=== PATIENT | female | born 1970 | race Asian ===

== ENCOUNTER 2022-03-02 14:48 | Inpatient (IN) | payer MEDICAID ==
[~2022-03-02] VITALS: Ht 152.4 cm; Wt 72.7 kg
[2022-03-02 16:52] LABS: BASOPHILS % (AUTO) 0.4 % (0-1); EOSINOPHILS # (AUTO) 0.2 X10'3 (0-0.9); EOSINOPHILS % (AUTO) 3.1 % (0-6); LYMPHOCYTES # (AUTO) 1.1 X10'3 (1.1-4.8); LYMPHOCYTES % (AUTO) 17.6 % (21-51); MEAN CORPUSCULAR HEMOGLOBIN 28.8 PG (27.0-31.0); MEAN CORPUSCULAR HGB CONC 33.3 g/dL (33.0-36.5); MEAN CORPUSCULAR VOLUME 86.5 FL (78-98); MEAN PLATELET VOLUME 7.8 FL (7.4-10.4); MONOCYTES # (AUTO) 0.5 X10'3 (0-0.9); MONOCYTES % (AUTO) 8.2 % (2-12); NEUTROPHILS # (AUTO) 4.5 X10'3 (1.8-7.7); NEUTROPHILS % (AUTO) 70.7 % (42-75); PLATELET COUNT 184 X10'3 (140-440); RED BLOOD COUNT 2.06 X10'6 (4.20-5.60); WHITE BLOOD COUNT 6.3 X10'3 (4.5-11.0)
[2022-03-02 16:53] LABS: CLARITY,URINE CLEAR (Clear); GLUCOSE, URINE 250 mg/dl (Neg); KETONES,URINE NEGATIVE (Neg); LEUKOCYTE ESTERASE ,URINE NEGATIVE (Neg); NITRITES, URINE NEGATIVE (Neg); OCCULT BLOOD,URINE SMALL (Neg); PROTEIN,URINE 30 mg/dl (Neg); UROBILINOGEN,URINE 0.2 E.U/dL (0.2-1.0)
[2022-03-02 16:55] LABS: HEMOGLOBIN 5.9 g/dl (12.0-16.0)
[2022-03-02 16:56] LABS: COLOR,URINE STRAW (Yellow); UA COLLECTION TYPE CLN CATCH MIDSTREAM
[2022-03-02 16:56] LABS: HEMATOCRIT 17.9 % (35.0-45.0)
[2022-03-02 16:59] LABS: BACTERIA,URINE NONE SEEN /HPF (Neg); MUCUS STRANDS NONE SEEN /LPF (Neg); RBC,URINE 0-2 /HPF (0-2); SQUAMOUS EPITHELIAL CELL,UR FEW /LPF (FEW); WBC,URINE 0-4 /HPF (0-4)
[2022-03-02 17:00] LABS: URINE HCG NEGATIVE (NEG)
[2022-03-02 17:11] LABS: ALANINE AMINOTRANSFERASE 14 U/L (12-78); ALBUMIN 3.5 G/DL (3.4-5.0); ALBUMIN/GLOBULIN RATIO 0.9 (1.1-1.5); ALKALINE PHOSPHATASE 131 IU/L (46-116); ANION GAP 17 (8-16); ASPARTATE AMINO TRANSFERASE 11 U/L (10-37); BILIRUBIN,TOTAL 0.2 MG/DL (0.1-1.0); BLOOD UREA NITROGEN 131 MG/DL (7-18); BUN/CREATININE RATIO 13.3 (6.6-38.0); CHLORIDE 107 MMOL/L (99-107); CREATININE 9.84 MG/DL (0.40-0.90); GLUCOSE 114 MG/DL (70-104); LIPASE 542 U/L (73-393); POTASSIUM 3.8 MMOL/L (3.5-5.1); SODIUM 141 MMOL/L (135-145); TOTAL CARBON DIOXIDE 16.6 MMOL/L (24-32); TOTAL PROTEIN 7.3 G/DL (6.4-8.2); eGFR 4 ML/MIN
[2022-03-02 17:25] LABS: CALCIUM 5.7 MG/DL (8.5-10.1)
[2022-03-02 18:04] LABS: PHOSPHORUS 5.7 MG/DL (2.3-4.5)
[2022-03-02 23:15] VITALS: BP 170/94
[2022-03-02 23:33] VITALS: BP 161/96
[2022-03-02] MEDS ORDERED: calcium chloride 100 MG/1 ML inj IV ONE (23:50)
[2022-03-03 00:23] VITALS: BP 155/73
[2022-03-03] MEDS ORDERED: NO HOME MEDS (00:25)
[2022-03-03 01:04] VITALS: BP 176/87
[2022-03-03] MEDS ORDERED: acetaminophen 325mg tablet PO PRN (01:20)
[2022-03-03] MEDS ORDERED: morphine 2 MG/ML inj. syringe IV PRN (01:20)
[2022-03-03] MEDS ORDERED: bisacodyl 10mg suppository rectal RC PRN (01:20)
[2022-03-03] MEDS ORDERED: magnesium hydroxide 30ml (MOM) UD suspension PO PRN (01:20)
[2022-03-03] MEDS ORDERED: mag hydrox/Alum hydrox/simeth 30ml oral suspension PO PRN (01:20)
[2022-03-03] MEDS ORDERED: HYDROcodone/acetaminophen 5mg/325mg tablet PO PRN (01:20)
[2022-03-03] MEDS ORDERED: diphenhydrAMINE 50 mg/ml inj IV PRN (01:20)
[2022-03-03] MEDS ORDERED: diphenhydrAMINE 25mg capsule PO PRN (01:20)
[2022-03-03] MEDS ORDERED: ondansetron 4mg rapidly disintigrating tab PO PRN (01:20)
[2022-03-03] MEDS ORDERED: acetaminophen 650mg rectal suppository RC PRN (01:20)
[2022-03-03] MEDS ORDERED: ondansetron/PF 4mg/2ml inj IV PRN (01:20)
[2022-03-03 02:03] LABS: HEMOGLOBIN A1C 5.6 % (4.5-6.2)
[2022-03-03] MEDS: normal saline 1000ml 1,000 ML IV SCH ×2 (02:06→11:19)
[2022-03-03 02:15] LABS: APTT 30 SECONDS (22-32)
[2022-03-03 02:17] LABS: URINE AMPHETAMINE SCREEN NEGATIVE (Neg); URINE BARBITUATE SCREEN NEGATIVE (Neg); URINE BENZODIAZEPINES SCREEN NEGATIVE (Neg); URINE CANNABINOID SCREEN NEGATIVE (Neg); URINE COCAINE SCREEN NEGATIVE (Neg); URINE METHADONE SCREEN NEGATIVE (Neg); URINE OPIATE SCREEN NEGATIVE (Neg); URINE PHENCYCLIDINE SCREEN NEGATIVE (Neg)
[2022-03-03 02:26] LABS: CREATINE KINASE 299 U/L (26-192)
[2022-03-03 03:33] LABS: HEMATOCRIT 22.7 % (35.0-45.0); HEMOGLOBIN 7.4 g/dl (12.0-16.0); MEAN CORPUSCULAR HEMOGLOBIN 29.3 PG (27.0-31.0); MEAN CORPUSCULAR HGB CONC 32.7 g/dL (33.0-36.5); MEAN CORPUSCULAR VOLUME 89.6 FL (78-98); MEAN PLATELET VOLUME 8.2 FL (7.4-10.4); PLATELET COUNT 192 X10'3 (140-440); RED BLOOD COUNT 2.53 X10'6 (4.20-5.60); RED CELL DISTRIBUTION WIDTH 13.8 % (11.5-14.5); WHITE BLOOD COUNT 7.5 X10'3 (4.5-11.0)
--- NOTE | 2022-03-03 06:25 | NUR ---
BEDSIDE REPORT RECEIVED FROM [facility] SHIFT NURSE AT THIS TIME. PATIENT ASLEEP, NO SIGNS OF DISTRESS NOTED, ALL SAFETY MEASURES IN PLACE, WILL CONTINUE TO MONITOR.
[2022-03-03 07:12] LABS: OCCULT BLOOD STOOL NEGATIVE (Neg)
[2022-03-03 07:29] LABS: ALANINE AMINOTRANSFERASE 14 U/L (12-78); ALBUMIN 3.7 G/DL (3.4-5.0); ALBUMIN/GLOBULIN RATIO 1.1 (1.1-1.5); ALKALINE PHOSPHATASE 134 IU/L (46-116); ANION GAP 21 (8-16); ASPARTATE AMINO TRANSFERASE 16 U/L (10-37); BILIRUBIN,TOTAL 0.3 MG/DL (0.1-1.0); BLOOD UREA NITROGEN 122 MG/DL (7-18); BUN/CREATININE RATIO 12.8 (6.6-38.0); CALCIUM 7.1 MG/DL (8.5-10.1); CHLORIDE 109 MMOL/L (99-107); CREATININE 9.56 MG/DL (0.40-0.90); GLUCOSE 90 MG/DL (70-104); POTASSIUM 4.1 MMOL/L (3.5-5.1); SODIUM 143 MMOL/L (135-145); TOTAL PROTEIN 7.2 G/DL (6.4-8.2); eGFR 4 ML/MIN
[2022-03-03] MEDS: calcium carbonate/vitamin D3 tablet PO SCH ×3 (07:38→17:51)
[2022-03-03] MEDS: pantoprazole 40mg Tablet.DR PO SCH (07:38)
[2022-03-03] MEDS: docusate sod 100mg capsule PO SCH ×2 (07:39→20:34)
[2022-03-03] MEDS: amLODIPine 5mg tablet PO SCH (08:00)
[2022-03-03] MEDS: sodium bicarbonate (8.4%) inj. 150 MEQ in dextrose 5%-water 1,000 ML IV SCH ×2 (09:01→20:36)
[2022-03-03 12:15] VITALS: BP 140/82
--- NOTE | 2022-03-03 18:20 | NUR ---
Problems reprioritized. Patient report given, questions answered & plan of care reviewed with NNEKA ARENAS.
[2022-03-03 18:56] VITALS: BP 140/77
--- NOTE | 2022-03-03 21:24 | NUR ---
Charting by Maria Victoria SORENSON reviewed by July Espinosa RN
[2022-03-04] VITALS: BP 131/82
[2022-03-04 06:00] VITALS: BP 171/84
[2022-03-04 06:06] LABS: BASOPHILS % (AUTO) 0.6 % (0-1); EOSINOPHILS # (AUTO) 0.2 X10'3 (0-0.9); EOSINOPHILS % (AUTO) 2.6 % (0-6); LYMPHOCYTES # (AUTO) 1.4 X10'3 (1.1-4.8); LYMPHOCYTES % (AUTO) 21.4 % (21-51); MEAN CORPUSCULAR HEMOGLOBIN 29.7 PG (27.0-31.0); MEAN CORPUSCULAR HGB CONC 33.7 g/dL (33.0-36.5); MEAN CORPUSCULAR VOLUME 88.2 FL (78-98); MEAN PLATELET VOLUME 8.7 FL (7.4-10.4); MONOCYTES # (AUTO) 0.5 X10'3 (0-0.9); NEUTROPHILS # (AUTO) 4.3 X10'3 (1.8-7.7); NEUTROPHILS % (AUTO) 67.4 % (42-75); PLATELET COUNT 177 X10'3 (140-440); RED CELL DISTRIBUTION WIDTH 13.4 % (11.5-14.5); WHITE BLOOD COUNT 6.3 X10'3 (4.5-11.0)
[2022-03-04 06:11] LABS: ALANINE AMINOTRANSFERASE 12 U/L (12-78); ALBUMIN/GLOBULIN RATIO 0.9 (1.1-1.5); ALKALINE PHOSPHATASE 130 IU/L (46-116); ANION GAP 13 (8-16); ASPARTATE AMINO TRANSFERASE 13 U/L (10-37); BILIRUBIN,TOTAL 0.2 MG/DL (0.1-1.0); BLOOD UREA NITROGEN 108 MG/DL (7-18); BUN/CREATININE RATIO 12.3 (6.6-38.0); CHLORIDE 105 MMOL/L (99-107); CHOL/HDL RATIO 3.3 (0.00-4.99); CHOLESTEROL 126 MG/DL (0-200); GLUCOSE 110 MG/DL (70-104); HDL CHOLESTEROL 38 MG/DL (35-60); LACTATE DEHYDROGENASE 235 U/L (81-234); LDL CHOLESTEROL 71 MG/DL (50-100); POTASSIUM 3.1 MMOL/L (3.5-5.1); SODIUM 141 MMOL/L (135-145); TOTAL CARBON DIOXIDE 23.4 MMOL/L (24-32); TOTAL PROTEIN 6.3 G/DL (6.4-8.2); TRIGLYCERIDES 87 MG/DL (20-135); eGFR 5 ML/MIN
[2022-03-04 06:16] LABS: HEMATOCRIT 20.3 % (35.0-45.0); HEMOGLOBIN 6.8 g/dl (12.0-16.0)
[2022-03-04] MEDS ORDERED: CALCIUM GLUC 1gm/50ml NACL,iso 100 ML IV ONE (06:30)
--- NOTE | 2022-03-04 06:30 | NUR ---
t/c to dr harrison to report critical values of h&h 6.8/20.3 and calcium of 6.0. received orders to infuse 1gm of calcium gluconate and to pass on h&h level to day time hospitalist.
--- NOTE | 2022-03-04 06:37 | NUR ---
Patient in room [facility]. I have received report from Roxi EARLY and had the opportunity to ask questions and assume patient care.
[2022-03-04 06:42] LABS: RHEUM FACTOR QUAL REFLEX TITER NEGATIVE (Neg)
--- NOTE | 2022-03-04 07:22 | NUR ---
PAGER ID: [phone] MESSAGE: [id number] Yasir Mathews: Critical values Calcium 6.0. H&H 6.8/20.3. received orders for 1gm calcium gluconate. Marissa hopkins passed the H&H orders to day shift. thank you! israel [phone]
--- NOTE | 2022-03-04 08:20 | NUR ---
Pt. [id number] talked with Angio, done with renal vascular ultrasound and stated that her NPO diet order can be advanced per order from MD.
--- NOTE | 2022-03-04 08:22 | NUR ---
Pt. got call from network/telecom engineer stating that pt. leads were off, went into pt. room and got leads back on pt. tele working, sinus rhythm. HR 74.
[2022-03-04 08:45] LABS: HIV ANTIBODY 1&2 RAPID NON-REACTIVE (Neg)
[2022-03-04] MEDS: calcium carbonate/vitamin D3 tablet PO SCH ×3 (09:02→18:02)
[2022-03-04] MEDS: docusate sod 100mg capsule PO SCH ×2 (09:03→19:19)
[2022-03-04] MEDS: amLODIPine 5mg tablet PO SCH (09:04)
[2022-03-04] MEDS: sodium bicarbonate (8.4%) inj. 150 MEQ in dextrose 5%-water 1,000 ML IV SCH ×2 (09:05→19:23)
[2022-03-04] MEDS: pantoprazole 40mg Tablet.DR PO SCH (09:14)
[2022-03-04 09:21] LABS: TOTAL PROTEIN,URINE RANDOM 39.5 MG/DL
[2022-03-04] MEDS ORDERED: EPOETIN ALFA-EPBX 20,000 UNIT/ML 1 ML MDV SQ ONE (10:40)
[2022-03-04 10:44] LABS: RED BLOOD COUNT 2.35 X10'6 (4.20-5.60); RETICULOCYTE % (AUTO) 1.9 % (0.5-1.5)
[2022-03-04 11:12] LABS: % IRON SATURATION 17 % (11-46); IRON 32 UG/DL (49-151); TOTAL IRON BINDING CAPACITY 191 UG/DL (259-388)
[2022-03-04] MEDS: potassium Cl 20 mEq SR tablet PO SCH ×2 (11:44→19:19)
[2022-03-04 12:00] VITALS: BP 128/83
--- NOTE | 2022-03-04 13:30 | NUR ---
PICKED UP BY [facility].
[2022-03-04] MEDS ORDERED: iron dextran complex inj. 25 MG in normal saline 50ml IV soln 100 ML IV ONE (14:00)
[2022-03-04] MEDS ORDERED: iron dextran complex inj. 25 MG in normal saline 50ml IV soln 49.5 ML IV ONE (14:00)
--- NOTE | 2022-03-04 14:43 | NUR ---
back from [facility].
--- NOTE | 2022-03-04 17:31 | NUR ---
I have reviewed and agree with all interventions, assessments performed and documented by NNEKA Garcia. For this medication-pass time frame, all medication were reviewed, dispensed, administered and documented per hospital policy by NNEKA Garcia.
--- NOTE | 2022-03-04 18:18 | NUR ---
Problems reprioritized. Patient report given, questions answered & plan of care reviewed with NNEKA Hernández.
[2022-03-04] MEDS ORDERED: NORMAL SALINE IV ONE (19:00)
[2022-03-04] MEDS ORDERED: IRON DEXTRAN COMPLEX IV ONE (19:00)
--- NOTE | 2022-03-04 19:16 | NUR ---
Message sent to pharmacy: 190 dose of Iron 100mg is ordered, however not here.... thanks Betty. Addendum: 03/04/22 at 1917 by Betty Malcolm RN Amended: Links added.
[2022-03-04 20:00] VITALS: BP 108/70
[2022-03-05] VITALS: BP 129/81
--- NOTE | 2022-03-05 06:37 | NUR ---
Problems reprioritized. Patient report given, questions answered & plan of care reviewed with Irma EARLY. Addendum: 03/05/22 at 0638 by Betty Malcolm RN Amended: Links added.
--- NOTE | 2022-03-05 06:38 | NUR ---
Problems reprioritized. Patient report given, questions answered & plan of care reviewed with Irma EARLY. Addendum: 03/05/22 at 0639 by Betty Malcolm RN Amended: Links added.
--- NOTE | 2022-03-05 06:55 | NUR ---
Patient in room [facility]. I have received report from mike hawkins and had the opportunity to ask questions and assume patient care.
[2022-03-05 07:42] VITALS: BP 129/68
[2022-03-05] MEDS: docusate sod 100mg capsule PO SCH ×2 (08:10→19:30)
[2022-03-05] MEDS: potassium Cl 20 mEq SR tablet PO SCH ×2 (08:10→19:25)
[2022-03-05] MEDS: pantoprazole 40mg Tablet.DR PO SCH (08:10)
[2022-03-05] MEDS: amLODIPine 5mg tablet PO SCH (08:10)
[2022-03-05] MEDS: calcium carbonate/vitamin D3 tablet PO SCH ×3 (08:10→19:30)
[2022-03-05] MEDS: calcitriol 0.25mcg capsule PO SCH (08:10)
[2022-03-05] MEDS: sodium bicarbonate (8.4%) inj. 150 MEQ in dextrose 5%-water 1,000 ML IV SCH (08:11)
[2022-03-05 08:16] LABS: BASOPHILS % (AUTO) 0.5 % (0-1); EOSINOPHILS # (AUTO) 0.2 X10'3 (0-0.9); EOSINOPHILS % (AUTO) 2.8 % (0-6); HEMOGLOBIN 7.1 g/dl (12.0-16.0); LYMPHOCYTES # (AUTO) 1.3 X10'3 (1.1-4.8); LYMPHOCYTES % (AUTO) 21.8 % (21-51); MEAN CORPUSCULAR HEMOGLOBIN 29.3 PG (27.0-31.0); MEAN CORPUSCULAR HGB CONC 33.4 g/dL (33.0-36.5); MEAN CORPUSCULAR VOLUME 87.8 FL (78-98); MEAN PLATELET VOLUME 8.3 FL (7.4-10.4); MONOCYTES # (AUTO) 0.4 X10'3 (0-0.9); MONOCYTES % (AUTO) 7.8 % (2-12); NEUTROPHILS # (AUTO) 3.9 X10'3 (1.8-7.7); NEUTROPHILS % (AUTO) 67.1 % (42-75); PLATELET COUNT 178 X10'3 (140-440); RED BLOOD COUNT 2.41 X10'6 (4.20-5.60); RED CELL DISTRIBUTION WIDTH 13.2 % (11.5-14.5); WHITE BLOOD COUNT 5.7 X10'3 (4.5-11.0)
[2022-03-05 08:23] LABS: HEMATOCRIT 21.2 % (35.0-45.0)
--- NOTE | 2022-03-05 08:29 | NUR ---
PAGED DR FUNK RE: PAGER ID: [phone] MESSAGE: MARCELL CARD. HGB 7.1 HCT 21.2 ROMARIO SURG [id number]
[2022-03-05 08:37] LABS: ALANINE AMINOTRANSFERASE 10 U/L (12-78); ALBUMIN 2.9 G/DL (3.4-5.0); ALBUMIN/GLOBULIN RATIO 0.9 (1.1-1.5); ALKALINE PHOSPHATASE 105 IU/L (46-116); ANION GAP 15 (8-16); ASPARTATE AMINO TRANSFERASE 12 U/L (10-37); BILIRUBIN,TOTAL 0.2 MG/DL (0.1-1.0); BLOOD UREA NITROGEN 94 MG/DL (7-18); BUN/CREATININE RATIO 10.8 (6.6-38.0); CHLORIDE 118 MMOL/L (99-107); CREATININE 8.73 MG/DL (0.40-0.90); GLUCOSE 103 MG/DL (70-104); POTASSIUM 3.9 MMOL/L (3.5-5.1); TOTAL CARBON DIOXIDE 31.5 MMOL/L (24-32); eGFR 5 ML/MIN
[2022-03-05 08:51] LABS: SODIUM 164 MMOL/L (135-145)
[2022-03-05 09:08] VITALS: BP 128/78
[2022-03-05 11:13] LABS: ANION GAP 8 (8-16); BLOOD UREA NITROGEN 96 MG/DL (7-18); CHLORIDE 103 MMOL/L (99-107); CREATININE 8.69 MG/DL (0.40-0.90); GLUCOSE 94 MG/DL (70-104); POTASSIUM 3.5 MMOL/L (3.5-5.1); SODIUM 142 MMOL/L (135-145); TOTAL CARBON DIOXIDE 30.7 MMOL/L (24-32); eGFR 5 ML/MIN
[2022-03-05 12:01] VITALS: BP 123/85
[2022-03-05 12:26] LABS: A/G RATIO 1.4 (0.7-1.7); ALBUMIN 3.3 g/dL (2.9-4.4); BETA GLOBULIN 0.7 g/dL (0.7-1.3); GAMMA GLOBULIN 0.9 g/dL (0.4-1.8); GLOBULIN, TOTAL 2.4 g/dL (2.2-3.9); HBSAG SCREEN Negative (Negative); HEPATITIS C ANTIBODY <0.1 s/co ratio (0.0-0.9); M-SPIKE Not Observed g/dL (Not Observed); PROTEIN, TOTAL, SERUM 5.7 g/dL (6.0-8.5)
[2022-03-05] MEDS ORDERED: mannitol 12.5gm/50mL VIAL IV ONE (13:10)
[2022-03-05] MEDS ORDERED: normal saline 1000ml 100 ML IV PRN (13:10)
[2022-03-05] MEDS ORDERED: EPOETIN ALFA-EPBX 20,000 UNIT/ML 1 ML MDV IV ONE (13:10)
[2022-03-05] MEDS ORDERED: heparin 1,000 units/ml 10ml inj HE ONE ×2 (13:15→13:55)
[2022-03-05] MEDS ORDERED: heparin 1,000unit/ml 10ml vial 10 ML ONE (13:41)
[2022-03-05] MEDS ORDERED: fentaNYL/PF 50MCG/1 ML 2ML syringe ONE (13:41)
[2022-03-05] MEDS ORDERED: LIDOcaine 1% 30ml preserv. free vial ONE (13:42)
--- NOTE | 2022-03-05 18:46 | NUR ---
Problems reprioritized. Patient report given, questions answered & plan of care reviewed with LIVIA EARLY.
[2022-03-05 19:00] VITALS: BP 132/86
[2022-03-05] MEDS: acetaminophen 325mg tablet PO PRN (22:14)
[2022-03-06] VITALS: BP 151/83
[2022-03-06 07:22] VITALS: BP_SYST 129; BP_SYST 135; BP_DIAS 82
[2022-03-06 07:26] LABS: BASOPHILS % (AUTO) 0.8 % (0-1); EOSINOPHILS # (AUTO) 0.1 X10'3 (0-0.9); EOSINOPHILS % (AUTO) 2.9 % (0-6); HEMATOCRIT 24.4 % (35.0-45.0); LYMPHOCYTES # (AUTO) 1.1 X10'3 (1.1-4.8); LYMPHOCYTES % (AUTO) 21.8 % (21-51); MEAN CORPUSCULAR HEMOGLOBIN 29.3 PG (27.0-31.0); MEAN CORPUSCULAR HGB CONC 33.1 g/dL (33.0-36.5); MEAN CORPUSCULAR VOLUME 88.5 FL (78-98); MEAN PLATELET VOLUME 8.3 FL (7.4-10.4); MONOCYTES # (AUTO) 0.5 X10'3 (0-0.9); MONOCYTES % (AUTO) 9.5 % (2-12); NEUTROPHILS # (AUTO) 3.3 X10'3 (1.8-7.7); PLATELET COUNT 194 X10'3 (140-440); RED BLOOD COUNT 2.75 X10'6 (4.20-5.60); RED CELL DISTRIBUTION WIDTH 13.4 % (11.5-14.5); WHITE BLOOD COUNT 5.1 X10'3 (4.5-11.0)
[2022-03-06 07:46] LABS: ALANINE AMINOTRANSFERASE 11 U/L (12-78); ALBUMIN 3.2 G/DL (3.4-5.0); ALBUMIN/GLOBULIN RATIO 0.9 (1.1-1.5); ALKALINE PHOSPHATASE 125 IU/L (46-116); ANION GAP 8 (8-16); ASPARTATE AMINO TRANSFERASE 16 U/L (10-37); BILIRUBIN,TOTAL 0.4 MG/DL (0.1-1.0); BLOOD UREA NITROGEN 39 MG/DL (7-18); BUN/CREATININE RATIO 7.1 (6.6-38.0); CALCIUM 7.7 MG/DL (8.5-10.1); CHLORIDE 103 MMOL/L (99-107); GLUCOSE 105 MG/DL (70-104); POTASSIUM 4.2 MMOL/L (3.5-5.1); SODIUM 140 MMOL/L (135-145); TOTAL CARBON DIOXIDE 29.5 MMOL/L (24-32); TOTAL PROTEIN 6.8 G/DL (6.4-8.2); eGFR 8 ML/MIN
[2022-03-06] MEDS: potassium Cl 20 mEq SR tablet PO SCH ×2 (08:00→21:47)
[2022-03-06] MEDS: iron sucrose complex injection 200 MG in normal saline 100ml IV soln 100 ML IV SCH (08:38)
[2022-03-06] MEDS: docusate sod 100mg capsule PO SCH ×2 (08:39→21:47)
[2022-03-06] MEDS: calcitriol 0.25mcg capsule PO SCH (08:40)
[2022-03-06] MEDS: amLODIPine 5mg tablet PO SCH (08:41)
[2022-03-06] MEDS: calcium carbonate/vitamin D3 tablet PO SCH ×3 (08:41→17:41)
[2022-03-06] MEDS: pantoprazole 40mg Tablet.DR PO SCH (08:41)
[2022-03-06] MEDS ORDERED: EPOETIN ALFA-EPBX 20,000 UNIT/ML 1 ML MDV IV ONE (09:30)
[2022-03-06] MEDS ORDERED: mannitol 12.5gm/50mL VIAL IV ONE (09:30)
[2022-03-06] MEDS ORDERED: heparin 1,000 units/ml 10ml inj HE ONE ×2 (09:35)
[2022-03-06 11:00] VITALS: BP_SYST 110; BP_SYST 114; BP_DIAS 65; BP_DIAS 81
[2022-03-06 11:48] LABS: ALANINE AMINOTRANSFERASE 8 U/L (12-78); ALBUMIN 3.2 G/DL (3.4-5.0); ALBUMIN/GLOBULIN RATIO 0.9 (1.1-1.5); ALKALINE PHOSPHATASE 123 IU/L (46-116); ANION GAP 12 (8-16); ASPARTATE AMINO TRANSFERASE 12 U/L (10-37); BILIRUBIN,TOTAL 0.3 MG/DL (0.1-1.0); BLOOD UREA NITROGEN 42 MG/DL (7-18); BUN/CREATININE RATIO 7.2 (6.6-38.0); CALCIUM 7.6 MG/DL (8.5-10.1); CHLORIDE 102 MMOL/L (99-107); CREATININE 5.87 MG/DL (0.40-0.90); GLUCOSE 135 MG/DL (70-104); POTASSIUM 3.9 MMOL/L (3.5-5.1); SODIUM 142 MMOL/L (135-145); TOTAL PROTEIN 6.9 G/DL (6.4-8.2); eGFR 8 ML/MIN
[2022-03-06 13:56] LABS: ALANINE AMINOTRANSFERASE 13 U/L (12-78); ALBUMIN 3.6 G/DL (3.4-5.0); ALBUMIN/GLOBULIN RATIO 0.9 (1.1-1.5); ALKALINE PHOSPHATASE 137 IU/L (46-116); ANION GAP 11 (8-16); ASPARTATE AMINO TRANSFERASE 14 U/L (10-37); BILIRUBIN,TOTAL 0.4 MG/DL (0.1-1.0); BLOOD UREA NITROGEN 13 MG/DL (7-18); CALCIUM 9.6 MG/DL (8.5-10.1); CHLORIDE 101 MMOL/L (99-107); CREATININE 1.87 MG/DL (0.40-0.90); GLUCOSE 108 MG/DL (70-104); POTASSIUM 3.1 MMOL/L (3.5-5.1); SODIUM 142 MMOL/L (135-145); TOTAL CARBON DIOXIDE 30.1 MMOL/L (24-32); TOTAL PROTEIN 7.7 G/DL (6.4-8.2); eGFR 29 ML/MIN
--- NOTE | 2022-03-06 16:49 | NUR ---
Student documentation: I have reviewed and agree with all interventions, assessments performed and documented by Jose Roberto Contreras student nurse, Alok Valladares RN instructor.
--- NOTE | 2022-03-06 18:13 | NUR ---
Problems reprioritized. Patient report given, questions answered & plan of care reviewed with LIVIA EARLY.
[2022-03-06 19:00] VITALS: BP 115/75
--- NOTE | 2022-03-06 19:00 | NUR ---
Patient in room [facility]. I have received report from LIVIA EARLY and had the opportunity to ask questions and assume patient care.
[2022-03-06 23:00] VITALS: BP 125/82
[2022-03-07] MEDS: acetaminophen 325mg tablet PO PRN (01:43)
[2022-03-07 03:00] VITALS: BP 125/84
--- NOTE | 2022-03-07 06:30 | NUR ---
Problems reprioritized. Patient report given, questions answered & plan of care reviewed with ANGEL EARLY.
[2022-03-07 07:00] VITALS: BP 125/80
[2022-03-07 07:25] LABS: BASOPHILS % (AUTO) 0.6 % (0-1); EOSINOPHILS # (AUTO) 0.2 X10'3 (0-0.9); EOSINOPHILS % (AUTO) 2.8 % (0-6); HEMATOCRIT 24.6 % (35.0-45.0); HEMOGLOBIN 8.2 g/dl (12.0-16.0); LYMPHOCYTES # (AUTO) 1.6 X10'3 (1.1-4.8); LYMPHOCYTES % (AUTO) 23.2 % (21-51); MEAN CORPUSCULAR HEMOGLOBIN 29.8 PG (27.0-31.0); MEAN CORPUSCULAR HGB CONC 33.4 g/dL (33.0-36.5); MEAN CORPUSCULAR VOLUME 89.3 FL (78-98); MEAN PLATELET VOLUME 8.4 FL (7.4-10.4); MONOCYTES # (AUTO) 0.6 X10'3 (0-0.9); MONOCYTES % (AUTO) 8.3 % (2-12); NEUTROPHILS # (AUTO) 4.6 X10'3 (1.8-7.7); NEUTROPHILS % (AUTO) 65.1 % (42-75); PLATELET COUNT 189 X10'3 (140-440); RED BLOOD COUNT 2.76 X10'6 (4.20-5.60); RED CELL DISTRIBUTION WIDTH 13.4 % (11.5-14.5)
[2022-03-07] MEDS: iron sucrose complex injection 200 MG in normal saline 100ml IV soln 100 ML IV SCH (07:27)
[2022-03-07] MEDS: docusate sod 100mg capsule PO SCH ×2 (07:28→19:48)
[2022-03-07] MEDS: calcitriol 0.25mcg capsule PO SCH (07:28)
[2022-03-07] MEDS: calcium carbonate/vitamin D3 tablet PO SCH ×3 (07:28→17:49)
[2022-03-07] MEDS: pantoprazole 40mg Tablet.DR PO SCH (07:28)
[2022-03-07] MEDS: amLODIPine 5mg tablet PO SCH (07:29)
[2022-03-07] MEDS: potassium Cl 20 mEq SR tablet PO SCH ×2 (07:29→19:48)
[2022-03-07 07:45] LABS: ALANINE AMINOTRANSFERASE 12 U/L (12-78); ALBUMIN 3.2 G/DL (3.4-5.0); ALBUMIN/GLOBULIN RATIO 0.9 (1.1-1.5); ALKALINE PHOSPHATASE 121 IU/L (46-116); ANION GAP 11 (8-16); ASPARTATE AMINO TRANSFERASE 15 U/L (10-37); BILIRUBIN,TOTAL 0.3 MG/DL (0.1-1.0); BLOOD UREA NITROGEN 33 MG/DL (7-18); BUN/CREATININE RATIO 6.7 (6.6-38.0); CHLORIDE 104 MMOL/L (99-107); CREATININE 4.96 MG/DL (0.40-0.90); GLUCOSE 99 MG/DL (70-104); POTASSIUM 4.1 MMOL/L (3.5-5.1); SODIUM 141 MMOL/L (135-145); TOTAL CARBON DIOXIDE 25.7 MMOL/L (24-32); TOTAL PROTEIN 6.8 G/DL (6.4-8.2); eGFR 9 ML/MIN
--- NOTE | 2022-03-07 09:14 | NUR ---
Initial: Pt admitted w/ acute renal failure and anemia per EMR, has been started on HD. Currently on Renal diet w/ avg intake 60% of meals partially meeting est protein needs. Consider liberalizing to Regular diet given the acute nature of this renal occurrence. LB 03/03 receiving routine colace. Will continue to monitor. Recommendations: 1. Consider Regular diet 2. Double protein WB 3. Bowel care per rx 4. Scaled wts w/ HD Addendum: 03/07/22 at [address] Amended: Links added.
[2022-03-07 10:00] VITALS: BP 108/68
[2022-03-07 18:00] VITALS: BP 135/86
--- NOTE | 2022-03-07 18:48 | NUR ---
patient up and about in room. limited martiniquais patient is from [facility]. Family in room bringing patient food. No c/o pain. Seen by Dr Martinez and Dr saucedo . Report given to Mary Carmen EARLY
[2022-03-07 22:00] VITALS: BP 131/77
[2022-03-08 02:00] VITALS: BP 121/83
[2022-03-08 05:52] LABS: BASOPHILS # (AUTO) 0.1 X10'3 (0-0.2); BASOPHILS % (AUTO) 0.6 % (0-1); EOSINOPHILS # (AUTO) 0.2 X10'3 (0-0.9); EOSINOPHILS % (AUTO) 2.3 % (0-6); HEMATOCRIT 25.5 % (35.0-45.0); HEMOGLOBIN 8.3 g/dl (12.0-16.0); LYMPHOCYTES # (AUTO) 1.4 X10'3 (1.1-4.8); LYMPHOCYTES % (AUTO) 14.7 % (21-51); MEAN CORPUSCULAR HEMOGLOBIN 29.2 PG (27.0-31.0); MEAN CORPUSCULAR HGB CONC 32.6 g/dL (33.0-36.5); MEAN CORPUSCULAR VOLUME 89.6 FL (78-98); MEAN PLATELET VOLUME 7.8 FL (7.4-10.4); MONOCYTES # (AUTO) 0.7 X10'3 (0-0.9); NEUTROPHILS # (AUTO) 7.2 X10'3 (1.8-7.7); NEUTROPHILS % (AUTO) 75.4 % (42-75); PLATELET COUNT 210 X10'3 (140-440); RED BLOOD COUNT 2.85 X10'6 (4.20-5.60); RED CELL DISTRIBUTION WIDTH 13.2 % (11.5-14.5); WHITE BLOOD COUNT 9.6 X10'3 (4.5-11.0)
[2022-03-08 06:00] VITALS: BP 136/76
[2022-03-08 06:16] LABS: ALANINE AMINOTRANSFERASE 19 U/L (12-78); ALBUMIN 3.4 G/DL (3.4-5.0); ALBUMIN/GLOBULIN RATIO 0.9 (1.1-1.5); ALKALINE PHOSPHATASE 128 IU/L (46-116); ANION GAP 12 (8-16); ASPARTATE AMINO TRANSFERASE 20 U/L (10-37); BILIRUBIN,TOTAL 0.3 MG/DL (0.1-1.0); BLOOD UREA NITROGEN 47 MG/DL (7-18); BUN/CREATININE RATIO 6.9 (6.6-38.0); CALCIUM 8.2 MG/DL (8.5-10.1); CHLORIDE 106 MMOL/L (99-107); GLUCOSE 97 MG/DL (70-104); POTASSIUM 4.8 MMOL/L (3.5-5.1); SODIUM 140 MMOL/L (135-145); TOTAL CARBON DIOXIDE 22.1 MMOL/L (24-32); eGFR 6 ML/MIN
--- NOTE | 2022-03-08 06:19 | NUR ---
Problems reprioritized. Patient report given, questions answered & plan of care reviewed with NNEKA ORTIZ.
--- NOTE | 2022-03-08 06:38 | NUR ---
Patient in room [facility]. I have received report from Mary Carmen EARLY and had the opportunity to ask questions and assume patient care.
[2022-03-08] MEDS: amLODIPine 5mg tablet PO SCH (08:00)
[2022-03-08] MEDS: calcitriol 0.25mcg capsule PO SCH (08:43)
[2022-03-08] MEDS: iron sucrose complex injection 200 MG in normal saline 100ml IV soln 100 ML IV SCH (08:43)
[2022-03-08] MEDS: pantoprazole 40mg Tablet.DR PO SCH (08:44)
[2022-03-08] MEDS: docusate sod 100mg capsule PO SCH ×2 (08:44→20:06)
[2022-03-08] MEDS: calcium carbonate/vitamin D3 tablet PO SCH ×3 (08:44→17:33)
[2022-03-08] MEDS: potassium Cl 20 mEq SR tablet PO SCH (08:53)
[2022-03-08] MEDS ORDERED: heparin 1,000 units/ml 10ml inj IV ONE (10:00)
[2022-03-08] MEDS ORDERED: heparin 1,000 units/ml 10ml inj HE ONE (10:00)
[2022-03-08] MEDS ORDERED: heparin 1,000unit/ml 10ml vial 10 ML IV ONE (10:00)
[2022-03-08] MEDS ORDERED: EPOETIN ALFA-EPBX 20,000 UNIT/ML 1 ML MDV IV ONE (10:00)
[2022-03-08 11:00] VITALS: BP 115/75
[2022-03-08 12:19] LABS: ALBUMIN, UR 21.2 % (.); ALPHA-1-GLOBULIN,UR 11.7 % (.); ALPHA-2-GLOBULIN,UR 18.6 % (.); BETA GLOBULIN, UR 32.6 % (.); PROTEIN,TOTAL,URINE 19.2 mg/dL (Not Estab.)
[2022-03-08] MEDS: acetaminophen 325mg tablet PO PRN (13:11)
--- NOTE | 2022-03-08 17:55 | NUR ---
patient had dialysis today see note. seen also by Dr Morgan, is for placement of TDC tomorrow. patient tearful about this and states she is afraid. Time spent reassuring patient. family present. will continue to monitor
[2022-03-08 18:00] VITALS: BP 102/64
--- NOTE | 2022-03-08 18:28 | NUR ---
Problems reprioritized. Patient report given, questions answered & plan of care reviewed with Mary Carmen EARLY.
[2022-03-08 22:00] VITALS: BP 107/69
[2022-03-09] VITALS (9 sets, daily range): BP systolic 107–123; BP diastolic 69–81
--- NOTE | 2022-03-09 06:15 | NUR ---
Problems reprioritized. Patient report given, questions answered & plan of care reviewed with NNEKA Sales.
--- NOTE | 2022-03-09 06:45 | NUR ---
Patient in room [facility]. I have received report from Mary Carmen EARLY and had the opportunity to ask questions and assume patient care.
[2022-03-09] MEDS: pantoprazole 40mg Tablet.DR PO SCH (07:54)
[2022-03-09] MEDS: calcium carbonate/vitamin D3 tablet PO SCH ×3 (07:56→16:44)
[2022-03-09] MEDS: amLODIPine 5mg tablet PO SCH (07:56)
[2022-03-09] MEDS: docusate sod 100mg capsule PO SCH ×2 (07:56→20:30)
[2022-03-09] MEDS: calcitriol 0.25mcg capsule PO SCH (07:56)
[2022-03-09 08:03] LABS: ALANINE AMINOTRANSFERASE 29 U/L (12-78); ALBUMIN 3.7 G/DL (3.4-5.0); ALBUMIN/GLOBULIN RATIO 0.9 (1.1-1.5); ALKALINE PHOSPHATASE 145 IU/L (46-116); ANION GAP 11 (8-16); ASPARTATE AMINO TRANSFERASE 28 U/L (10-37); BILIRUBIN,TOTAL 0.4 MG/DL (0.1-1.0); BLOOD UREA NITROGEN 36 MG/DL (7-18); BUN/CREATININE RATIO 6.4 (6.6-38.0); CALCIUM 8.8 MG/DL (8.5-10.1); CHLORIDE 101 MMOL/L (99-107); CREATININE 5.64 MG/DL (0.40-0.90); GLUCOSE 106 MG/DL (70-104); POTASSIUM 5.2 MMOL/L (3.5-5.1); SODIUM 137 MMOL/L (135-145); TOTAL CARBON DIOXIDE 24.6 MMOL/L (24-32); TOTAL PROTEIN 7.8 G/DL (6.4-8.2); eGFR 8 ML/MIN
[2022-03-09 14:26] LABS: HEP B CORE AB, TOT Negative (Negative)
[2022-03-09] MEDS ORDERED: LIDOcaine 1% 30ml preserv. free vial ONE (14:52)
[2022-03-09] MEDS ORDERED: heparin 1,000unit/ml 10ml vial 10 ML ONE (14:52)
[2022-03-09] MEDS: acetaminophen 325mg tablet PO PRN (16:45)
--- NOTE | 2022-03-09 17:37 | NUR ---
patient went for TDC placement in right chest. tolerated procedure well. Tylenol given for pain on return. present in room. will continue to monitor
--- NOTE | 2022-03-09 18:11 | NUR ---
Problems reprioritized. Patient report given, questions answered & plan of care reviewed with Mary Carmen EARLY.
[2022-03-10] MEDS: acetaminophen 325mg tablet PO PRN (05:22)
[2022-03-10 06:00] VITALS: BP 120/72
--- NOTE | 2022-03-10 06:46 | NUR ---
Problems reprioritized. Patient report given, questions answered & plan of care reviewed with NNEKA Abraham.
[2022-03-10] MEDS: amLODIPine 5mg tablet PO SCH (07:24)
[2022-03-10] MEDS: pantoprazole 40mg Tablet.DR PO SCH (07:25)
[2022-03-10] MEDS: docusate sod 100mg capsule PO SCH ×2 (07:25→19:10)
[2022-03-10] MEDS: calcium carbonate/vitamin D3 tablet PO SCH ×3 (07:25→16:50)
[2022-03-10] MEDS: calcitriol 0.25mcg capsule PO SCH (07:25)
[2022-03-10] MEDS ORDERED: albumin (human) 25% 100ml IV 100 ML IV PRN (08:00)
[2022-03-10] MEDS ORDERED: EPOETIN ALFA-EPBX 20,000 UNIT/ML 1 ML MDV IV ONE (08:00)
[2022-03-10] MEDS ORDERED: heparin 1,000unit/ml 10ml vial 10 ML IV ONE (08:00)
[2022-03-10] MEDS ORDERED: heparin 1,000 units/ml 10ml inj IV ONE (08:00)
[2022-03-10] MEDS ORDERED: heparin 1,000 units/ml 10ml inj HE ONE ×2 (08:00)
[2022-03-10 10:00] VITALS: BP 127/79
[2022-03-10 10:07] LABS: ANTINUCLEAR ANTIBODIES Negative
[2022-03-10 10:59] LABS: BASOPHILS # (AUTO) 0.1 X10'3 (0-0.2); BASOPHILS % (AUTO) 0.6 % (0-1); EOSINOPHILS # (AUTO) 0.2 X10'3 (0-0.9); EOSINOPHILS % (AUTO) 2.5 % (0-6); HEMATOCRIT 26.5 % (35.0-45.0); HEMOGLOBIN 8.7 g/dl (12.0-16.0); LYMPHOCYTES # (AUTO) 1.4 X10'3 (1.1-4.8); MEAN CORPUSCULAR HEMOGLOBIN 29.8 PG (27.0-31.0); MEAN CORPUSCULAR HGB CONC 32.6 g/dL (33.0-36.5); MEAN CORPUSCULAR VOLUME 91.3 FL (78-98); MEAN PLATELET VOLUME 7.7 FL (7.4-10.4); MONOCYTES # (AUTO) 0.9 X10'3 (0-0.9); MONOCYTES % (AUTO) 8.8 % (2-12); NEUTROPHILS # (AUTO) 7.2 X10'3 (1.8-7.7); NEUTROPHILS % (AUTO) 74.1 % (42-75); PLATELET COUNT 212 X10'3 (140-440); RED BLOOD COUNT 2.91 X10'6 (4.20-5.60); RED CELL DISTRIBUTION WIDTH 13.2 % (11.5-14.5); WHITE BLOOD COUNT 9.8 X10'3 (4.5-11.0)
[2022-03-10 20:00] VITALS: BP 110/67
[2022-03-11 01:00] VITALS: BP 109/71
[2022-03-11 05:00] VITALS: BP_SYST 112; BP_SYST 116; BP_DIAS 76; BP_DIAS 77
--- NOTE | 2022-03-11 06:51 | NUR ---
Problems reprioritized. Patient report given, questions answered & plan of care reviewed with Jarad Medeiros RN.
--- NOTE | 2022-03-11 07:58 | NUR ---
Reassessment: Pt continues on Renal diet w/ avg intake 70% of meals which meets approximately 100% of est energy needs and 93% of est protein needs. PO intake appears to go down around HD times, which last treatment was on 03/10 w/ 2L out per documentation. LBM 03/08 receiving routine colace. No nutrition intervention implemented at this time. Will continue to monitor. Recommendations: 1. Continue Renal diet as tolerated; Consider Regular diet if only PIA 2. Double protein WB 3. Bowel care per rx 4. Scaled wts w/ HD Addendum: 03/11/22 at [address] Amended: Links added.
[2022-03-11] MEDS: docusate sod 100mg capsule PO SCH ×2 (08:00→21:10)
[2022-03-11] MEDS: calcium carbonate/vitamin D3 tablet PO SCH ×3 (08:11→21:10)
[2022-03-11] MEDS: amLODIPine 5mg tablet PO SCH (08:11)
[2022-03-11] MEDS: calcitriol 0.25mcg capsule PO SCH (08:11)
[2022-03-11] MEDS: pantoprazole 40mg Tablet.DR PO SCH (08:11)
[2022-03-11 09:36] LABS: BASOPHILS # (AUTO) 0.1 X10'3 (0-0.2); BASOPHILS % (AUTO) 0.6 % (0-1); EOSINOPHILS # (AUTO) 0.2 X10'3 (0-0.9); EOSINOPHILS % (AUTO) 2.6 % (0-6); LYMPHOCYTES # (AUTO) 1.2 X10'3 (1.1-4.8); LYMPHOCYTES % (AUTO) 14.3 % (21-51); MEAN CORPUSCULAR HEMOGLOBIN 30.1 PG (27.0-31.0); MEAN CORPUSCULAR HGB CONC 33.5 g/dL (33.0-36.5); MEAN CORPUSCULAR VOLUME 89.9 FL (78-98); MEAN PLATELET VOLUME 8.1 FL (7.4-10.4); MONOCYTES # (AUTO) 0.7 X10'3 (0-0.9); MONOCYTES % (AUTO) 8.5 % (2-12); NEUTROPHILS # (AUTO) 6.4 X10'3 (1.8-7.7); PLATELET COUNT 215 X10'3 (140-440); RED CELL DISTRIBUTION WIDTH 13.3 % (11.5-14.5); WHITE BLOOD COUNT 8.6 X10'3 (4.5-11.0)
[2022-03-11 10:00] VITALS: BP 103/60
[2022-03-11 10:08] LABS: ALANINE AMINOTRANSFERASE 24 U/L (12-78); ALBUMIN 3.5 G/DL (3.4-5.0); ALBUMIN/GLOBULIN RATIO 0.9 (1.1-1.5); ALKALINE PHOSPHATASE 141 IU/L (46-116); ANION GAP 14 (8-16); ASPARTATE AMINO TRANSFERASE 22 U/L (10-37); BILIRUBIN,TOTAL 0.4 MG/DL (0.1-1.0); BLOOD UREA NITROGEN 41 MG/DL (7-18); BUN/CREATININE RATIO 7.3 (6.6-38.0); CALCIUM 8.7 MG/DL (8.5-10.1); CHLORIDE 98 MMOL/L (99-107); CREATININE 5.59 MG/DL (0.40-0.90); GLUCOSE 131 MG/DL (70-104); POTASSIUM 3.9 MMOL/L (3.5-5.1); SODIUM 134 MMOL/L (135-145); TOTAL CARBON DIOXIDE 22.5 MMOL/L (24-32); TOTAL PROTEIN 7.4 G/DL (6.4-8.2); eGFR 8 ML/MIN
[2022-03-11 16:59] LABS: HBSAG SCREEN Negative (Negative)
[2022-03-11 18:00] VITALS: BP 106/70
--- NOTE | 2022-03-11 18:37 | NUR ---
Patient in room [facility]. I have received report from JAN EARLY and had the opportunity to ask questions and assume patient care.
[2022-03-11 22:00] VITALS: BP 116/71
--- NOTE | 2022-03-12 06:26 | NUR ---
Problems reprioritized. Patient report given, questions answered & plan of care reviewed with JAN EARLY.
[2022-03-12 06:31] VITALS: BP 109/62
[2022-03-12] MEDS: amLODIPine 5mg tablet PO SCH (07:34)
[2022-03-12] MEDS: pantoprazole 40mg Tablet.DR PO SCH (07:34)
[2022-03-12] MEDS: docusate sod 100mg capsule PO SCH (07:34)
[2022-03-12] MEDS: calcitriol 0.25mcg capsule PO SCH (07:34)
[2022-03-12] MEDS: calcium carbonate/vitamin D3 tablet PO SCH ×2 (08:53→12:51)
[2022-03-12] MEDS ORDERED: heparin 1,000unit/ml 10ml vial 10 ML IV ONE (09:45)
[2022-03-12] MEDS ORDERED: EPOETIN ALFA-EPBX 20,000 UNIT/ML 1 ML MDV IV ONE (09:45)
[2022-03-12] MEDS ORDERED: heparin 1,000 units/ml 10ml inj HE ONE ×2 (09:50)
[2022-03-12 10:00] VITALS: BP 119/76
[2022-03-12 10:44] LABS: BASOPHILS # (AUTO) 0.1 X10'3 (0-0.2); BASOPHILS % (AUTO) 0.5 % (0-1); EOSINOPHILS # (AUTO) 0.2 X10'3 (0-0.9); HEMATOCRIT 25.6 % (35.0-45.0); HEMOGLOBIN 8.6 g/dl (12.0-16.0); LYMPHOCYTES # (AUTO) 1.3 X10'3 (1.1-4.8); LYMPHOCYTES % (AUTO) 11.7 % (21-51); MEAN CORPUSCULAR HEMOGLOBIN 30.3 PG (27.0-31.0); MEAN CORPUSCULAR HGB CONC 33.5 g/dL (33.0-36.5); MEAN CORPUSCULAR VOLUME 90.7 FL (78-98); MEAN PLATELET VOLUME 8.4 FL (7.4-10.4); MONOCYTES # (AUTO) 0.9 X10'3 (0-0.9); MONOCYTES % (AUTO) 8.4 % (2-12); NEUTROPHILS # (AUTO) 8.3 X10'3 (1.8-7.7); NEUTROPHILS % (AUTO) 77.4 % (42-75); PLATELET COUNT 199 X10'3 (140-440); RED BLOOD COUNT 2.82 X10'6 (4.20-5.60); RED CELL DISTRIBUTION WIDTH 13.4 % (11.5-14.5); WHITE BLOOD COUNT 10.8 X10'3 (4.5-11.0)
[2022-03-12 10:47] LABS: ALANINE AMINOTRANSFERASE 24 U/L (12-78); ALBUMIN 3.4 G/DL (3.4-5.0); ALBUMIN/GLOBULIN RATIO 0.9 (1.1-1.5); ALKALINE PHOSPHATASE 158 IU/L (46-116); ANION GAP 16 (8-16); ASPARTATE AMINO TRANSFERASE 15 U/L (10-37); BILIRUBIN,TOTAL 0.3 MG/DL (0.1-1.0); BLOOD UREA NITROGEN 85 MG/DL (7-18); CALCIUM 8.5 MG/DL (8.5-10.1); CHLORIDE 98 MMOL/L (99-107); GLUCOSE 98 MG/DL (70-104); POTASSIUM 4.1 MMOL/L (3.5-5.1); SODIUM 135 MMOL/L (135-145); TOTAL CARBON DIOXIDE 21.3 MMOL/L (24-32); TOTAL PROTEIN 7.2 G/DL (6.4-8.2); eGFR 6 ML/MIN
[2022-03-12] MEDS ORDERED: CALC-1008 PO (11:20)
[2022-03-12] MEDS ORDERED: CALC0.2535 PO (11:20)
[2022-03-12] MEDS ORDERED: PANT40TA54 PO (11:20)
[2022-03-12] MEDS ORDERED: NOR5T PO (11:20)
== END 2022-03-12 14:47 | disposition home or self-care (01) | DRG 469 ==
LOC: ER 14:49 → ED HOLD 03-03 01:22 → UNDOADMIN 03-03 01:22 → ED HOLD 03-03 06:56 → SUR 3N 03-03 12:03
PROVIDERS: ADMIT Family Medicine; ATTEND Family Medicine
PROC: 30233N1 Transfusion of Nonautologous Red Blood Cells into Peripheral Vein, Percutaneous Approach (ICD-10-PCS; principal; 2022-03-02)
PROC: CT131ZZ Planar Nuclear Medicine Imaging of Kidneys, Ureters and Bladder using Technetium 99m (Tc-99m) (ICD-10-PCS; 2022-03-04)
PROC: 02HV33Z Insertion of Infusion Device into Superior Vena Cava, Percutaneous Approach (ICD-10-PCS; 2022-03-05)
PROC: B548ZZA Ultrasonography of Superior Vena Cava, Guidance (ICD-10-PCS; 2022-03-05)
PROC: B5181ZA Fluoroscopy of Superior Vena Cava using Low Osmolar Contrast, Guidance (ICD-10-PCS; 2022-03-05)
PROC: 5A1D70Z Performance of Urinary Filtration, Intermittent, Less than 6 Hours Per Day (ICD-10-PCS; 2022-03-05)
PROC: 5A1D70Z Performance of Urinary Filtration, Intermittent, Less than 6 Hours Per Day (ICD-10-PCS; 2022-03-06)
PROC: 5A1D70Z Performance of Urinary Filtration, Intermittent, Less than 6 Hours Per Day (ICD-10-PCS; 2022-03-08)
PROC: 0JH63XZ Insertion of Tunneled Vascular Access Device into Chest Subcutaneous Tissue and Fascia, Percutaneous Approach (ICD-10-PCS; 2022-03-09)
PROC: 02H633Z Insertion of Infusion Device into Right Atrium, Percutaneous Approach (ICD-10-PCS; 2022-03-09)
PROC: B5181ZA Fluoroscopy of Superior Vena Cava using Low Osmolar Contrast, Guidance (ICD-10-PCS; 2022-03-09)
PROC: 05PYX3Z Removal of Infusion Device from Upper Vein, External Approach (ICD-10-PCS; 2022-03-09)
PROC: 5A1D70Z Performance of Urinary Filtration, Intermittent, Less than 6 Hours Per Day (ICD-10-PCS; 2022-03-10)
PROC: 5A1D70Z Performance of Urinary Filtration, Intermittent, Less than 6 Hours Per Day (ICD-10-PCS; 2022-03-12)
DX: N17.9 Acute kidney failure, unspecified (principal); I13.2 Hypertensive heart and chronic kidney disease with heart failure and with stage 5 chronic kidney disease, or end stage renal disease; E83.39 Other disorders of phosphorus metabolism; E87.20 Acidosis, unspecified; E83.51 Hypocalcemia; D63.1 Anemia in chronic kidney disease; D50.9 Iron deficiency anemia, unspecified; I50.32 Chronic diastolic (congestive) heart failure; N18.6 End stage renal disease; F43.10 Post-traumatic stress disorder, unspecified; K59.00 Constipation, unspecified; R19.5 Other fecal abnormalities; R21 Rash and other nonspecific skin eruption; Z86.32 Personal history of gestational diabetes
CPT/HCPCS: 36415; 36430; 36556; 36558; 71045; 74176; 76937; 77001; 78707; 80048; 80053; 80061; 80305; 81001; 81025; 82272; 82550; 82570; 83036; 83540; 83550; 83615; 83690; 83735; 83880; 83970; 84100; 84155; 84156; 84165; 84166; 84300; 84443; 84484; 85025; 85027; 85045; 85610; 85651; 85730; 86038; 86430; 86592; 86703; 86704; 86705; 86803; 86885; 86900; 86901; 86920; 87081; 87207; 87340; 93005; 93306; 93975; 99285; A4620; A6402; A9270; A9562; C1750; C1751; C1769; C1894; G0257; G0378; J0610; J1644; J1750; J1756; J2150; J3010; J3490; J7030; J7040; J7070; P9016; Q4081